=== PATIENT | male | born 1990 | race Caucasian/White ===

== ENCOUNTER 2022-04-07 12:38 | Emergency (ER) | payer MEDICAID ==
[~2022-04-07] VITALS: Ht 177.8 cm; Wt 99.8 kg
[2022-04-07] MEDS ORDERED: LORAZEPAM 0.5 MG TABLET PO ONE (13:30)
[2022-04-07] MEDS ORDERED: LORAZEPAM 0.5 MG TABLET ONE (13:33)
--- NOTE | 2022-04-07 13:38 | NUR ---
patient states he needs to leave due to flight he needs to be on in 1.5hrs at [place]. pt states he feels better, denies chest pain at this time. pt wishes to sign out AMA. AMA signed.
[2022-04-07 13:47] LABS: HEMATOCRIT 47.7 % (36.7-47.1); MEAN CORPUSCULAR HEMOGLOBIN 31.9 uug (23.8-33.4); MEAN CORPUSCULAR VOLUME 93.5 fL (73.0-96.2); PLATELET COUNT (AUTO) 142 K/uL (152-348)
[2022-04-07 14:09] LABS: CREATININE 1.1 mg/dL (0.6-1.3); POTASSIUM 3.7 mmol/L (3.5-5.1)
[2022-04-07 14:21] LABS: BILIRUBIN,TOTAL 0.4 mg/dL (0.2-1.0); TOTAL PROTEIN, SERUM 7.3 g/dL (6.4-8.2)
== END 2022-04-07 13:50 | disposition home or self-care (01) ==
LOC: ER 12:38
DX: F41.9 Anxiety disorder, unspecified (principal); I10 Essential (primary) hypertension
CPT/HCPCS: 36415; 84484; 85025; 93005; A4663